=== PATIENT | male | born 1970 | race Asian ===

== ENCOUNTER 2017-11-07 12:37 | Day surgery (SDC) | payer BC ==
[2017-11-07] VITALS (9 sets, daily range): BP systolic 113–140; BP diastolic 63–95; PULSE 80–121; TEMP 98–98.7
[~2017-11-07] VITALS: Ht 175.3 cm; Wt 76.1 kg
[2017-11-07] MEDS ORDERED: ZYRTEC 10MG10 MG PO (14:03)
[2017-11-07] MEDS ORDERED: PEPCID 20MG TAB20 MG PO (14:06)
[2017-11-07] MEDS ORDERED: ZANTAC 150MG T150 MG PO (14:07)
[2017-11-07] MEDS ORDERED: MULTI VITAMINS1 TAB PO (14:08)
[2017-11-07] MEDS ORDERED: B COMPLEX #11 TAB PO (14:09)
[2017-11-07] MEDS ORDERED: EPA FISH OIL1 SGL PO (14:10)
[2017-11-07] MEDS ORDERED: MOTRIN 600600 MG/TAB PO (17:46)
[2017-11-07] MEDS ORDERED: PERCOCET 325 MG1 TA2 PO (17:46)
[2017-11-07] MEDS ORDERED: COLACE 100100 MG/CAP PO (17:47)
== END 2017-11-07 22:50 | disposition home or self-care (01) ==
LOC: SDCO 12:37 → SURG 17:50 → SDCO 22:50
DX: K40.90 Unilateral inguinal hernia, without obstruction or gangrene, not specified as recurrent (principal); K21.9 Gastro-esophageal reflux disease without esophagitis; J30.1 Allergic rhinitis due to pollen; Z88.0 Allergy status to penicillin; Z96.641 Presence of right artificial hip joint; Z80.0 Family history of malignant neoplasm of digestive organs; Z80.49 Family history of malignant neoplasm of other genital organs; Z80.8 Family history of malignant neoplasm of other organs or systems; Z80.1 Family history of malignant neoplasm of trachea, bronchus and lung; Z80.3 Family history of malignant neoplasm of breast
CPT/HCPCS: OP; A4314; C1781; J0360; J1885; J2405; J2704; J3010; J7120

== ENCOUNTER 2018-09-10 10:03 | Emergency (ER) | payer OTHER, BC ==
[~2018-09-10] VITALS: Ht 177.8 cm; Wt 77.3 kg
[~2018-09-10 10:03] MED LIST: B COMPLEX #11 TAB PO; COLACE 100100 MG/CAP PO; EPA FISH OIL1 SGL PO; MOTRIN 600600 MG/TAB PO; MULTI VITAMINS1 TAB PO; PEPCID 20MG TAB20 MG PO; PERCOCET 325 MG1 TA2 PO; ZANTAC 150MG T150 MG PO; ZYRTEC 10MG10 MG PO
[2018-09-10 10:31] VITALS: TEMP 98.9
[2018-09-10 14:55] VITALS: BP 128/84; PULSE 89
== END 2018-09-10 14:55 | disposition home or self-care (01) ==
LOC: COL.ER 10:03
DX: S16.1XXA Strain of muscle, fascia and tendon at neck level, initial encounter (principal); V89.2XXA Person injured in unspecified motor-vehicle accident, traffic, initial encounter